=== PATIENT | female | born 1995 | race Caucasian/White ===

== ENCOUNTER 2016-11-11 22:36 | Emergency (ER) | payer SELFPAY ==
[2016-11-11] MEDS ORDERED: DEXAMETHASONE 10 MG/ML VIAL PO STA (23:59)
[2016-11-11] MEDS ORDERED: AZITHROMYCIN 250 MG TABLET PO STA (23:59)
[2016-11-12] MEDS ORDERED: AZITHROMYCIN 250 MG TABLET PO ONE (00:01)
[2016-11-12] MEDS ORDERED: CHERRY SYRUP 10 ML UDC PO ONE (00:01)
[2016-11-12] MEDS ORDERED: DEXAMETHASONE 10 MG/ML VIAL ONE (00:01)
[2016-11-12] MEDS ORDERED: KETOROLAC 60 MG/2 ML VIAL IM STA (00:05)
[2016-11-12] MEDS ORDERED: KETOROLAC 60 MG/2 ML VIAL ONE (00:12)
== END 2016-11-12 00:20 | disposition home or self-care (01) ==
DX: H66.002 Acute suppurative otitis media without spontaneous rupture of ear drum, left ear (principal); R10.9 Unspecified abdominal pain; R30.0 Dysuria
CPT/HCPCS: 81003; 81025; 87086; 87491; 87591; 96372; 99282; 99283; A9270

== ENCOUNTER 2018-12-03 11:47 | Outpatient (CLI) | payer OTHER ==
[2018-12-03 13:16] LABS: THYROID STIMULATING HORMONE 0.73 uIU/mL (0.34-5.60)
[2018-12-03 13:22] LABS: PROLACTIN 7.26 ng/mL
== END 2018-12-03 11:48 | disposition home or self-care (01) ==
LOC: LAB 11:47
PROVIDERS: ATTEND Registered Nurse
DX: N96 Recurrent pregnancy loss (principal)
CPT/HCPCS: 36415; 81599; 84146; 84443; 86038

== ENCOUNTER 2018-12-04 08:00 | Outpatient (CLI) | payer OTHER | END 2018-12-04 23:59 | disposition home or self-care (01) | LOC: LAB.R 08:00 | PROVIDERS: ATTEND Registered Nurse | DX: N96 Recurrent pregnancy loss (principal) | CPT/HCPCS: 87491; 87591 ==

== ENCOUNTER 2018-12-24 15:35 | Outpatient (CLI) | payer OTHER ==
--- NOTE | 2018-12-25 09:16 | Ultrasound Report ---
Reason: RECURRENT Procedure Date: 12/24/2018 Accession Number: [id number] / [id number] Procedure: US - Pelvic w/Transvaginal CPT Code: FULL RESULT: EXAM: PELVIC ULTRASOUND EXAM DATE: 12/24/2018 05:12 PM. CLINICAL HISTORY: Recurrent . COMPARISON: None. TECHNIQUE: Realtime transabdominal pelvic scan performed to identify the uterus and adnexa and as an overview of other pelvic structures, followed by transvaginal scan to provide greater detail of the uterus and adnexa, with static image documentation. FINDINGS: Uterus: 9.9 x 4 x 5.9 cm, volume 77 cc. Anteverted position. Normal in size. Ill-defined 2.5 cm area of increased myometrial echogenicity posterior fundal uterus of uncertain significance possible adenomyomatosis. Masses: No definite Endometrium: 18 mm. Normal for cycle. Cervix: Unremarkable. Right Ovary: 2.7 x 2.9 x 2.4 cm, volume 9.6 cc. Normal echotexture and blood flow. Left Ovary: 2.4 x 1.4 x 2.3 cm, volume 4.1 cc. Normal echotexture and blood flow. Free Fluid: None. Other: None. IMPRESSION: 1. A 2.5 x 1.5 cm area of ill-defined increased echotexture to the posterior fundal myometrium. Consider adenomyomatosis. 2. Otherwise normal pelvic ultrasound. RADIA
== END 2018-12-24 15:36 | disposition home or self-care (01) ==
LOC: DI 15:35
PROVIDERS: ATTEND Registered Nurse
DX: N96 Recurrent pregnancy loss (principal)
CPT/HCPCS: 76830; 76856

== ENCOUNTER 2018-12-31 12:10 | Outpatient (CLI) | payer OTHER | END 2018-12-31 12:11 | disposition home or self-care (01) | LOC: LAB 12:10 | PROVIDERS: ATTEND Registered Nurse | DX: N96 Recurrent pregnancy loss (principal) | CPT/HCPCS: 36415; 81599; 86147 ==

== ENCOUNTER 2019-02-26 08:48 | Outpatient (CLI) | payer OTHER ==
[2019-02-26] MEDS ORDERED: GADOBUTROL 7.5 MMOL/7.5 ML VIAL ONE (10:03)
[2019-02-26] MEDS ORDERED: GADOBUTROL 7.5 MMOL/7.5 ML VIAL IVP ONE (10:08)
--- NOTE | 2019-02-26 16:36 | MRI Report ---
Reason: ADENOMYOSIS Procedure Date: 02/26/2019 Accession Number: [id number] / [id number] Procedure: MRI - Pelvis W/WO CPT Code: FULL RESULT: EXAM: MR PELVIS WITH AND WITHOUT CONTRAST (MR FEMALE PELVIS) EXAM DATE: 02/26/2019 10:26 AM. CLINICAL HISTORY: ADENOMYOSIS. Debilitating menstrual cycles with multiple miscarriages. COMPARISON: PELVIC W/TRANSVAGINAL 12/24/2018 4:24 PM. TECHNIQUE: Multiplanar breath-hold T1, T2 and DWI sequences obtained through the pelvis on an MR scanner. Images obtained before and after administration of 7.5 mL Gadavist intravenous contrast. FINDINGS: Reproductive Organs: Uterus: The uterus is anteverted and measures 9.3 x 4.5 x 3.2 cm with volume 72 cc. The endometrial stripe measures 15 mm with homogeneous appearance. Normal 4 mm junctional zone thickness. There are no uterine masses. Right Ovary: The right ovary measures 3.2 x 1.5 x 2.5 cm with volume 6.3 cc. Right ovary contains numerous small follicles. Left Ovary: The left ovary measures 3.4 x 3.0 x 2.1 cm with volume 11 cc. Left ovary contains a 1.6 cm collapsing corpus luteal cyst. Bowel: The visualized portions of the small bowel, colon, and rectum appear normal. Normal retrocecal appendix extending anterior to right psoas muscle. Bladder: The urinary bladder appears normal. Other: Small amount of free fluid in cul-de-sac and along right adnexa is likely physiologic. IMPRESSION: 1. 15 mm endometrial stripe is near upper limit of normal, previously mildly thickened. 2. No MR evidence for adenomyosis. 3. Although right ovary was not enlarged, there are numerous small follicles potentially representing polycystic ovarian morphology. Recommend clinical correlation. RADIA
== END 2019-02-26 08:49 | disposition home or self-care (01) ==
LOC: DI 08:48
PROVIDERS: ATTEND Registered Nurse
DX: N80.0 Endometriosis of uterus (principal)
CPT/HCPCS: 72197; A9585

== ENCOUNTER 2019-03-05 13:22 | Outpatient (CLI) | payer OTHER ==
[2019-03-05 14:15] LABS: CHOL/HDL RATIO 2.4 (<4.4); CHOLESTEROL 129 mg/dL; HDL CHOLESTEROL 53 mg/dL
[2019-03-05 14:33] LABS: LDL CHOLESTEROL,DIRECT 78 mg/dL; LDLD/HDL RATIO 1.5 (<4.4)
[2019-03-05 14:45] LABS: HB2 TOTAL 13.1 g/dL; HEMOGLOBIN A1C 0.42 g/dL; HEMOGLOBIN A1C % 5.1 % (4.6-6.2)
[2019-03-05 15:22] LABS: THYROID STIMULATING HORMONE 0.39 uIU/mL (0.34-5.60)
[2019-03-05 15:49] LABS: FOLLICLE STIMULATING HORMONE 6.24 mIU/mL
[2019-03-05 15:50] LABS: LUTEINIZING HORMONE 5.54 mIU/mL
[2019-03-06 06:57] LABS: ESTRADIOL 48 pg/mL
[2019-03-09 15:50] LABS: DHEA SULFATE 247 mcg/dL (18-391)
== END 2019-03-05 13:23 | disposition home or self-care (01) ==
LOC: LAB 13:22
PROVIDERS: ATTEND Registered Nurse
DX: E28.2 Polycystic ovarian syndrome (principal)
CPT/HCPCS: 36415; 80061; 81599; 82627; 82670; 82951; 83001; 83002; 83036; 83721; 84402; 84403; 84443

== ENCOUNTER 2019-04-05 16:25 | Outpatient (CLI) | payer OTHER | END 2019-04-05 16:26 | disposition home or self-care (01) | LOC: LAB 16:25 | PROVIDERS: ATTEND Obstetrics & Gynecology | DX: Z32.01 Encounter for pregnancy test, result positive (principal) | CPT/HCPCS: 36415; 84702 ==

== ENCOUNTER 2019-04-07 18:14 | Outpatient (CLI) | payer OTHER | END 2019-04-07 18:15 | disposition home or self-care (01) | LOC: LAB 18:14 | PROVIDERS: ATTEND Obstetrics & Gynecology | DX: Z32.01 Encounter for pregnancy test, result positive (principal) | CPT/HCPCS: 36415; 84702 ==

== ENCOUNTER 2019-04-26 08:28 | Outpatient (CLI) | payer OTHER ==
--- NOTE | 2019-04-27 09:58 | Ultrasound Report ---
Reason: TEST POSITIVE Procedure Date: 04/26/2019 Accession Number: [id number] / [id number] Procedure: US - OB First Trimester CPT Code: FULL RESULT: EXAM: FIRST TRIMESTER OBSTETRIC ULTRASOUND (Less than 11 weeks) EXAM DATE: 04/26/2019 09:26 AM. CLINICAL HISTORY: test positive. LMP: 02/28/2019. COMPARISONS: None. TECHNIQUE: Transabdominal and transvaginal ultrasound examination with static image documentation. CLINICAL DATES: EGA 8 weeks 1 day with DAVEY 12/05/2019 based on LMP. ASSESSMENT: Gestational Sac: Single intrauterine. Mean gestational sac diameter: 21 mm = 7 weeks 0 days. Embryo: CRL (crown-rump length) 12 mm = 7 weeks 2 days. Cardiac activity: 163 beats per minute. Yolk sac: 3 mm. Amniotic fluid: Not accurately assessed at this gestational age. Early placenta: Not visible at this gestational age. Other: A small perigestational fluid collection is detected 3.6 x 0.7 x 3.9 cm. MATERNAL STRUCTURES: Uterus: Anteverted and retroflexed. Cervix: Closed. Right Ovary/Adnexa: The ovary measures 3.0 x 2.4 x 2.8 cm, volume 10.5 cc. Corpus luteum noted. Left Ovary/Adnexa: The ovary measures 2.1 x 1.5 x 2.3 cm, volume 3.8 cc. Unremarkable. Free Fluid: None. Other: None. IMPRESSION: 1. Single viable intrauterine at EGA 7 weeks 2 days with DAVEY 12/11/2019. Based on crown-rump length, which is discordant with LMP. 2. Assigned dating is DAVEY 7 weeks 2 days based on current ultrasound. RADIA
== END 2019-04-26 08:29 | disposition home or self-care (01) ==
LOC: DI 08:28
PROVIDERS: ATTEND Obstetrics & Gynecology
DX: Z32.01 Encounter for pregnancy test, result positive (principal)
CPT/HCPCS: 76801; 76817

== ENCOUNTER 2019-05-03 08:00 | Outpatient (CLI) | payer OTHER ==
[2019-05-03 15:27] LABS: MUDS CUTOFF CONCENTRATIONS CUTOFF CONC BELOW:
[2019-05-03 15:32] LABS: BILIRUBIN,URINE NEGATIVE (NEGATIVE); GLUCOSE, URINE (UA) NEGATIVE (NEGATIVE); KETONES,URINE (UA) NEGATIVE (NEGATIVE); LEUKOCYTE ESTERASE, URINE NEGATIVE (NEGATIVE); NITRITE,URINE NEGATIVE (NEGATIVE); OCCULT BLOOD,URINE NEGATIVE (NEGATIVE); PH,URINE 6.5 PH (5.0-7.5); PROTEIN,URINE NEGATIVE (NEGATIVE); UROBILINOGEN,URINE 0.2 (NORMAL) E.U./dL (NORMAL)
[2019-05-03 15:39] LABS: BACTERIA,URINE Few /HPF (None Seen); CLARITY,URINE CLEAR (CLEAR); RBC,URINE None Seen /HPF (0-5); SQUAMOUS EPITHELIAL CELL,UR MOD Squamous (<= Few)
[2019-05-03 15:42] LABS: AMPHETAMINE SCREEN,URINE NEGATIVE (NEGATIVE); BENZODIAZEPINES SCREEN, URINE NEGATIVE (NEGATIVE); COCAINE SCREEN URINE NEGATIVE (NEGATIVE); METHADONE SCREEN, URINE NEGATIVE (NEGATIVE); METHAMPHETAMINES SCREEN, URINE NEGATIVE (NEGATIVE); OPIATE SCREEN, URINE NEGATIVE (NEGATIVE); OXYCODONE SCREEN, URINE NEGATIVE (NEGATIVE); PROPOXYPHENE SCREEN, URINE NEGATIVE (NEGATIVE); TRICYCLIC ANTIDEPRESSANT,URINE NEGATIVE (NEGATIVE)
== END 2019-05-03 23:59 | disposition home or self-care (01) ==
LOC: LAB.R 08:00
PROVIDERS: ATTEND Nurse Practitioner Obstetrics & Gynecology
DX: Z36.89 Encounter for other specified antenatal screening (principal)
CPT/HCPCS: 80306; 81001; 81599; 87086

== ENCOUNTER 2019-05-03 14:52 | Outpatient (CLI) | payer OTHER ==
[2019-05-03 15:21] LABS: BASOPHILS % (AUTO) 0.4 %; EOSINOPHILS # (AUTO) 0.1 10^3/uL (0.0-0.7); EOSINOPHILS % (AUTO) 0.6 %; HGB - HEMOGLOBIN 12.8 g/dL (12.0-16.0); LYMPHOCYTES # (AUTO) 1.9 10^3/uL (1.5-3.5); LYMPHOCYTES % (AUTO) 17.9 %; MEAN CORPUSCULAR HEMOGLOBIN 29.5 pg (27.0-31.0); MEAN CORPUSCULAR VOLUME 89.4 fL (81.0-99.0); MEAN PLATELET VOLUME 9.3 fL (7.9-10.8); MONOCYTES # (AUTO) 0.8 10^3/uL (0.0-1.0); MONOCYTES % (AUTO) 7.8 %; NEUTROPHILS # (AUTO) 7.7 10^3/uL (1.5-6.6); PLT - PLATELET COUNT 227 10^3/uL (130-450); RED BLOOD COUNT 4.34 10^6/uL (4.20-5.40); RED CELL DISTRIBUTION WIDTH 12.3 % (12.0-15.0); WHITE BLOOD COUNT 10.6 x10^3/uL (4.8-10.8)
[2019-05-04 15:16] LABS: HIV AG/AB 4TH GEN NON-REACTIVE (NON-REACTIVE)
[2019-05-04 15:27] LABS: HEPATITIS C ANTIBODY NON-REACTIVE (NON-REACTIVE)
[2019-05-04 15:28] LABS: HEPATITIS B SURFACE ANTIGEN NON-REACTIVE (NON-REACTIVE)
== END 2019-05-03 14:53 | disposition home or self-care (01) ==
LOC: LAB 14:52
PROVIDERS: ATTEND Nurse Practitioner Obstetrics & Gynecology
DX: Z36.89 Encounter for other specified antenatal screening (principal)
CPT/HCPCS: 36415; 80306; 81001; 81599; 85025; 86592; 86762; 86803; 86850; 86900; 86901; 87340; 87389

== ENCOUNTER 2019-06-28 10:49 | Outpatient (CLI) | payer OTHER ==
[2019-06-28 11:27] LABS: HGB - HEMOGLOBIN 11.9 g/dL (12.0-16.0); MEAN CORPUSCULAR HEMOGLOBIN 29.9 pg (27.0-31.0); MEAN CORPUSCULAR HGB CONC 33.1 g/dL (32.0-36.0); MEAN CORPUSCULAR VOLUME 90.2 fL (81.0-99.0); MEAN PLATELET VOLUME 9.3 fL (7.9-10.8); RED BLOOD COUNT 3.98 10^6/uL (4.20-5.40); RED CELL DISTRIBUTION WIDTH 12.9 % (12.0-15.0); WHITE BLOOD COUNT 8.8 x10^3/uL (4.8-10.8)
[2019-06-28 12:16] LABS: % IRON SATURATION 25 % (20-50); IRON 92 ug/dL (28-170); TOTAL IRON BINDING CAPACITY 361 ug/dL (250-450); TRANSFERRIN 258 mg/dL (192-382)
[2019-06-28 12:29] LABS: FERRITIN 28.7 ng/mL (11.0-306.8)
== END 2019-06-28 10:50 | disposition home or self-care (01) ==
LOC: LAB 10:49
PROVIDERS: ATTEND Obstetrics & Gynecology
DX: Z34.90 Encounter for supervision of normal pregnancy, unspecified, unspecified trimester (principal); R53.83 Other fatigue
CPT/HCPCS: 36415; 82728; 83540; 84443; 84466; 85027

== ENCOUNTER 2019-07-12 09:20 | Outpatient (CLI) | payer OTHER ==
--- NOTE | 2019-07-12 14:33 | Ultrasound Report ---
Reason: SCREENING Procedure Date: 07/12/2019 Accession Number: [id number] / [id number] Procedure: US - OB Detailed Eval CPT Code: FULL RESULT: EXAM: COMPLETE OBSTETRICAL ULTRASOUND EXAM DATE: 07/12/2019 11:05 AM. CLINICAL HISTORY: anatomic survey. COMPARISON: 04/26/2019. TECHNIQUE: Real-time sonographic evaluation of the fetus performed by the tongue binder. Multiple solar sales representative static images were saved for review. Transabdominal imaging only. DATING: Established EGA 19 weeks 1 day with DAVEY 12/05/2019 based on LMP. EGA 18 weeks 2 days with DAVEY 12/11/2019 based on prior ultrasound. EGA 19 weeks 0 days with DAVEY 12/06/2019 based on the current ultrasound. GENERAL EVALUATION Gaines . Cardiac activity: 133 bpm. movement: Visualized. Presentation: Variable. Placenta: Posterior fundal position. No evidence for previa. Umbilical cord: 3 vessel cord. Central placental cord origin. Amniotic fluid: Subjectively normal. MVP cm. BIOMETRY Bi-Parietal Diameter (BPD): 4.38 cm, 19 weeks 2 days. Head Circumference (HC): 15.61 cm, 18 weeks 4 days. Abdominal Circumference (AC): 14.51 cm, 19 weeks 6 days. Femur Length (FL): 2.76 cm, 18 weeks 3 days. Estimated Weight: 275 g, 43.9 percentile. ANATOMY The intracranial structures, profile, face/nose/lips, spine, 4 chamber heart and outflow tracts, stomach, abdominal wall and cord insertion, diaphragm, kidneys, bladder, and extremities were visualized and demonstrate no abnormality. MATERNAL STRUCTURES Uterus: Unremarkable. Cervix: Long and closed. Transabdominal length 4.8 cm. Right ovary/adnexa: Unremarkable. Left ovary/adnexa: Unremarkable. Free fluid: None. IMPRESSION: 1. Gaines live intrauterine with gestational age 19 weeks 0 days based on current ultrasound. 2. Estimated weight is within expected limits for assigned dating. 3. Normal anatomic survey. No anatomic abnormalities are detected at this time. RADIA
== END 2019-07-12 09:21 | disposition home or self-care (01) ==
LOC: DI 09:20
PROVIDERS: ATTEND Obstetrics & Gynecology
DX: Z36.89 Encounter for other specified antenatal screening (principal)
CPT/HCPCS: 76811

== ENCOUNTER 2019-09-13 15:00 | Outpatient (CLI) | payer OTHER ==
[2019-09-13 16:25] LABS: HGB - HEMOGLOBIN 11.2 g/dL (12.0-16.0); MEAN CORPUSCULAR HEMOGLOBIN 31.6 pg (27.0-31.0); MEAN CORPUSCULAR HGB CONC 34.1 g/dL (32.0-36.0); MEAN CORPUSCULAR VOLUME 92.7 fL (81.0-99.0); MEAN PLATELET VOLUME 9.5 fL (7.9-10.8); RED BLOOD COUNT 3.54 10^6/uL (4.20-5.40); RED CELL DISTRIBUTION WIDTH 12.2 % (12.0-15.0); WHITE BLOOD COUNT 8.7 x10^3/uL (4.8-10.8)
== END 2019-09-13 15:01 | disposition home or self-care (01) ==
LOC: LAB 15:00
PROVIDERS: ATTEND Nurse Practitioner Obstetrics & Gynecology
DX: Z36.89 Encounter for other specified antenatal screening (principal)
CPT/HCPCS: 36415; 82950; 85027; 86850

== ENCOUNTER 2019-10-19 07:00 | Outpatient (CLI) | payer OTHER | END 2019-10-19 23:59 | disposition home or self-care (01) | LOC: LAB.R 07:00 | PROVIDERS: ATTEND Nurse Practitioner Obstetrics & Gynecology | DX: O60.03 Preterm labor without delivery, third trimester (principal); Z3A.00 Weeks of gestation of pregnancy not specified; M54.89 Other dorsalgia | CPT/HCPCS: 81599; 82731 ==

== ENCOUNTER 2019-11-12 07:00 | Outpatient (CLI) | payer OTHER ==
[2019-11-12 21:34] LABS: TRICHOMONAS VAGINALIS DNA NEGATIVE (NEGATIVE)
== END 2019-11-12 23:59 | disposition home or self-care (01) ==
LOC: LAB.R 07:00
PROVIDERS: ATTEND Nurse Practitioner Obstetrics & Gynecology
DX: Z36.85 Encounter for antenatal screening for Streptococcus B (principal); Z36.89 Encounter for other specified antenatal screening
CPT/HCPCS: 87491; 87591; 87661; 87797

== ENCOUNTER 2019-11-14 07:32 | Outpatient (CLI) | payer OTHER ==
[2019-11-14 07:54] VITALS: BP 126/71
[2019-11-14] MEDS ORDERED: LACTATED RINGERS 1,000 ML IV ONE (08:13)
[2019-11-14 08:41] LABS: HGB - HEMOGLOBIN 11.2 g/dL (12.0-16.0); MEAN CORPUSCULAR HEMOGLOBIN 29.1 pg (27.0-31.0); MEAN CORPUSCULAR HGB CONC 32.2 g/dL (32.0-36.0); MEAN CORPUSCULAR VOLUME 90.4 fL (81.0-99.0); MEAN PLATELET VOLUME 10.7 fL (7.9-10.8); RED BLOOD COUNT 3.85 10^6/uL (4.20-5.40); RED CELL DISTRIBUTION WIDTH 12.1 % (12.0-15.0); WHITE BLOOD COUNT 8.4 x10^3/uL (4.8-10.8)
[2019-11-14 08:54] LABS: ALBUMIN 3.4 g/dL (3.2-5.5); BILIRUBIN,TOTAL 0.5 mg/dL (0.2-1.0); CALCIUM 8.6 mg/dL (8.5-10.3); CREATININE 0.6 mg/dL (0.4-1.0); TOTAL PROTEIN 6.8 g/dL (6.7-8.2)
[2019-11-14 09:00] LABS: BILIRUBIN,URINE NEGATIVE (NEGATIVE); GLUCOSE, URINE (UA) NEGATIVE (NEGATIVE); KETONES,URINE (UA) NEGATIVE (NEGATIVE); LEUKOCYTE ESTERASE, URINE MODERATE (NEGATIVE); NITRITE,URINE NEGATIVE (NEGATIVE); OCCULT BLOOD,URINE NEGATIVE (NEGATIVE); PROTEIN,URINE NEGATIVE (NEGATIVE); UROBILINOGEN,URINE 0.2 (NORMAL) E.U./dL (NORMAL)
[2019-11-14] MEDS ORDERED: ONDANSETRON 4 MG/2 ML VIAL IVP PRN (09:03)
[2019-11-14 09:11] LABS: CLARITY,URINE HAZY (CLEAR)
[2019-11-14 09:28] LABS: BACTERIA,URINE Moderate /HPF (None Seen); SQUAMOUS EPITHELIAL CELL,UR MOD Squamous (<= Few)
[2019-11-14] MEDS ORDERED: BENZOCAINE SPRAY MM SCH (10:00)
[2019-11-14] MEDS ORDERED: NITROFURANTOIN MACRO 100 MG CAPSULE PO SCH (10:00)
--- NOTE | 2019-11-14 10:34 | PROVIDER PROGRESS NOTE ---
- HPI Chief Complaint: symptoms Current : Current EDU 12/05/19 Gestation 36 Weeks and 0 Days 4 Para 0 Vital Signs Temperature 98.2 F 11/14/19 07:49 Heart Rate 61 11/14/19 07:49 Respiratory Rate 16 11/14/19 07:49 Blood Pressure 126/71 11/14/19 07:49 O2 Saturation 100 11/14/19 07:49 Temperature 98.2 F 11/14/19 07:49 Heart Rate 61 11/14/19 07:49 Respiratory Rate 16 11/14/19 07:49 Blood Pressure 126/71 11/14/19 07:49 O2 Saturation 100 11/14/19 07:49 24yo at 36 0/7 weeks by 7 week US not c/w LMP who presents with nausea, vomiting, suprapubic pain, frequency and urgency since last night. Denies fever, no sick contacts. Pt notes h/o frequent UTI's prior to . No bleeding or fluid leak, normal activity. Contractions irregular, mild. complicated by hyperemesis in first trimester and GERD. - Exam Mild distress, appears uncomfortable Abd soft, non-tender, mild suprapubic tenderness. Gravid, S=D - Procedures OB Procedure Performed: Other Diagnosis/Indication for NST: Other ( contractions, vomiting) NST Procedure: Category 1 tracing, irregular contraction, palpate very mild BPP: LEONIDES 11.1, vertical pocket 4.6cm, 8/8 Vertex Posterior placenta
--- NOTE | 2019-11-14 10:41 | PROVIDER PROGRESS NOTE ---
Subjective - Prog Note Date Prog Note Date: 11/14/19 Prog Note Time: 10:38 - Subjective Pt reports feeling: Improved (Feeling much better following hydration and zofran. Topical throat spray (sore secondary to vomiting) with resolution of symptoms Labs remarkable for leuk esterase and bacteria. +squames however, with other positives and symptomatology will initiate treatment for UTI and send culture. Repeat blood sugar 79 (initially 120) Plan DC home. F/U as scheduled in 48 hours. Continue amoxicillin. Discussed change of DAVEY.) Objective - Vital Signs/Intake & Output Vital Signs: Vital Signs x48h Temp Pulse Resp BP Pulse Ox 11/14/19 07:49 98.2 F 61 16 126/71 100 - Lab Results Fish Bones: 11/14/19 08:35 11/14/19 08:35 Other Labs: Lab Results x24hrs 11/14/19 11/14/19 11/14/19 Range/Units 08:45 08:35 08:35 WBC 8.4 (4.8-10.8) x10^3/uL RBC 3.85 L (4.20-5.40) 10^6/uL Hgb 11.2 L (12.0-16.0) g/dL Hct 34.8 L (37.0-47.0) % MCV 90.4 (81.0-99.0) fL MCH 29.1 (27.0-31.0) pg MCHC 32.2 (32.0-36.0) g/dL RDW 12.1 (12.0-15.0) % Plt Count 197 (130-450) 10^3/uL MPV 10.7 (7.9-10.8) fL Sodium 135 (135-145) mmol/L Potassium 3.6 (3.5-5.0) mmol/L Chloride 101 (101-111) mmol/L Carbon Dioxide 20 L (21-32) mmol/L Anion Gap 14.0 H (6-13) BUN 7 (6-20) mg/dL Creatinine 0.6 (0.4-1.0) mg/dL Estimated GFR (MDRD) 122 (>89) Glucose 120 H (70-100) mg/dL Calcium 8.6 (8.5-10.3) mg/dL Total Bilirubin 0.5 (0.2-1.0) mg/dL AST 28 (10-42) IU/L ALT 14 (10-60) IU/L Alkaline Phosphatase 98 (42-121) IU/L Total Protein 6.8 (6.7-8.2) g/dL Albumin 3.4 (3.2-5.5) g/dL Globulin 3.4 (2.1-4.2) g/dL Albumin/Globulin Ratio 1.0 (1.0-2.2) Urine Color YELLOW Urine Clarity HAZY (CLEAR) Urine pH 7.0 (5.0-7.5) PH Ur Specific [place] 1.010 (1.002-1.030) Urine Protein NEGATIVE (NEGATIVE) mg/dL Urine Glucose (UA) NEGATIVE (NEGATIVE) mg/dL Urine Ketones NEGATIVE (NEGATIVE) mg/dL Urine Occult Blood NEGATIVE (NEGATIVE) Urine Nitrite NEGATIVE (NEGATIVE) Urine Bilirubin NEGATIVE (NEGATIVE) Urine Urobilinogen 0.2 (NORMAL) (NORMAL) E.U./dL Ur Leukocyte Esterase MODERATE H (NEGATIVE) Urine RBC 6-10 H (0-5) /HPF Urine WBC 6-10 H (0-5) /HPF Ur Squamous Epith Cells MOD Squamous H (<= Few) Urine Bacteria Moderate H (None Seen) /HPF Urine Culture Comments INDICATED
[2019-11-14] MEDS: AMOXICILLIN 250 MG CAPSULE PO SCH ×2 (10:48→11:05)
--- NOTE | 2019-11-14 10:56 | Discharge Plan ---
Discharge Plan Problem Reviewed?: Yes Disposition: Home, Self Care Condition: Good Prescriptions: Amoxicillin 250 mg PO Q6HR 5 Days #20 capsule Diet: Regular No Smoking: If you smoke, Please STOP! Call for help.
[2019-11-14] MEDS ORDERED: BENZOCAINE/TETRACAINE/BUTAMBEN 20 GM MM SCH (11:00)
== END 2019-11-14 11:00 | disposition home or self-care (01) ==
LOC: WFO 07:32 → FBP 07:34 → WFO 11:00
PROVIDERS: ATTEND Obstetrics & Gynecology
DX: O21.2 Late vomiting of pregnancy (principal); R35.0 Frequency of micturition; R39.15 Urgency of urination; R82.71 Bacteriuria; R07.0 Pain in throat; O99.613 Diseases of the digestive system complicating pregnancy, third trimester; K21.9 Gastro-esophageal reflux disease without esophagitis; Z3A.36 36 weeks gestation of pregnancy; Z87.440 Personal history of urinary (tract) infections
CPT/HCPCS: 80053; 81001; 85027; 87086; 96374; 99214; A9270; J7120

== ENCOUNTER 2019-11-26 09:11 | Outpatient (CLI) | payer OTHER ==
[2019-11-26 09:25] VITALS: BP 122/64
--- NOTE | 2019-11-26 16:34 | PROCEDURE REPORT ---
- HPI Diagnosis/Indication for NST: Decreased movement Current EDU 12/11/19 Gestation 37 Weeks and 6 Days 4 Para 0 Vital Signs Temperature 36.9 C 11/26/19 09:24 Heart Rate 84 11/26/19 09:24 Respiratory Rate 14 11/26/19 09:24 Blood Pressure 122/64 11/26/19 09:24 O2 Saturation 97 11/26/19 09:24 Temperature 36.9 C 11/26/19 09:24 Heart Rate 84 11/26/19 09:24 Respiratory Rate 14 11/26/19 09:24 Blood Pressure 122/64 11/26/19 09:24 O2 Saturation 97 11/26/19 09:24 - NST Procedure NST Procedure Start Date 11/26/19 Start Time 09:19 Stop Time 09:42 Vibroacoustic Stimulation Used No Patient States Movement Yes - Results and Plan Plan: Jayna presents to [facility] following her routine visit as directed secondary to decreased movement for the past 4-5 hours. She denies vaginal bleeding or leakage of fluid and denies contractions. NST performed 11/26/2019 NST read 11/26/2019 NST reactive. FHR baseline 130s, moderate variability, + accels, no decels Pt released home with precautions and instructed to complete daily kick counts as directed. Pt verbalized understanding and agrees to above plan. She denies further questions or concerns at this time. FINAL DIAGNOSIS: 24yo @ 37.6wks gestation Decreased movement
== END 2019-11-26 09:55 | disposition home or self-care (01) ==
LOC: WFO 09:11 → FBP 09:13 → WFO 09:55
PROVIDERS: ATTEND Nurse Practitioner Obstetrics & Gynecology
DX: O36.8130 Decreased fetal movements, third trimester, not applicable or unspecified (principal); Z3A.37 37 weeks gestation of pregnancy
CPT/HCPCS: 59025

== ENCOUNTER 2019-12-06 21:57 | Outpatient (CLI) | payer MEDICAID ==
--- NOTE | 2019-12-08 13:53 | Ultrasound Report ---
Reason: UTERINE SIZE-DATE DISCREPANCY Procedure Date: 12/06/2019 Accession Number: [id number] / [id number] Procedure: US - OB F/U or Repeat CPT Code: Final Report FULL RESULT: EXAM: FOLLOW-UP OBSTETRICAL ULTRASOUND EXAM DATE: 12/06/2019 10:50 PM. CLINICAL HISTORY: UTERINE SIZE-DATE DISCREPANCY. COMPARISON: OB DETAILED EVAL 07/12/2019 9:39 AM OB FIRST TRIMESTER 04/26/2019 8:37 AM. TECHNIQUE: Real-time sonographic evaluation of the fetus performed by the equipment cleaner and tester. Multiple registration representative static images were saved for review. DATING: Established EGA 39 weeks 2 days with DAVEY 12/11/2019 based on first ultrasound of 04/26/2019.. EGA 40 weeks 1 day with DAVEY 12/05/2019 based on LMP.. EGA weeks/days with DAVEY based on the current ultrasound. GENERAL EVALUATION Gaines . Cardiac activity: 136 bpm. movement: Present. Presentation: Cephalic. Placenta: Posterior position. Amniotic fluid: Normal. LEONIDES 18.6 cm. MVP 5 cm. BIOMETRY Bi-Parietal Diameter (BPD): 9.4 cm, 38 weeks 1 day Head Circumference (HC): 34.8 cm, 30 weeks 3 days Abdominal Circumference (AC): 33.3 cm, 37 weeks 1 day Femur Length (FL): 7.5 cm, 38 weeks 1 day Estimated Weight: 3332 g, 25th percentile based on LMP. ANATOMY Not assessed today. MATERNAL STRUCTURES Not assessed today. IMPRESSION: 1. Gaines intrauterine with gestational age 39 weeks 2 days based on first ultrasound of 04/26/2019.. 2. Estimated weight is at the 25th percentile. 3. Normal LEONIDES. RADIA
== END 2019-12-06 21:58 | disposition home or self-care (01) ==
LOC: DI 21:57
PROVIDERS: ATTEND Nurse Practitioner Obstetrics & Gynecology
DX: O26.843 Uterine size-date discrepancy, third trimester (principal); Z3A.39 39 weeks gestation of pregnancy
CPT/HCPCS: 76816

== ENCOUNTER 2019-12-09 08:00 | Outpatient (CLI) | payer MEDICAID ==
[2019-12-09 20:34] LABS: CANDIDA GROUP DNA NEGATIVE (NEGATIVE); CANDIDA KRUSEI DNA NEGATIVE (NEGATIVE); TRICHOMONAS VAGINALIS DNA NEGATIVE (NEGATIVE)
== END 2019-12-09 23:59 | disposition home or self-care (01) ==
LOC: LAB.R 08:00
PROVIDERS: ATTEND Obstetrics & Gynecology
DX: R30.0 Dysuria (principal)
CPT/HCPCS: 87086; 87661; 87801

== ENCOUNTER 2019-12-10 13:42 | Outpatient (CLI) | payer MEDICAID ==
[2019-12-10 14:00] VITALS: BP 120/71
--- NOTE | 2019-12-10 16:54 | PROCEDURE REPORT ---
- HPI Diagnosis/Indication for NST: Decreased movement Current EDU 12/11/19 Gestation 39 Weeks and 6 Days 4 Para 0 Vital Signs Temperature 37.0 C 12/10/19 13:54 Heart Rate 72 12/10/19 13:54 Respiratory Rate 18 12/10/19 13:54 Blood Pressure 120/71 12/10/19 13:54 Temperature 37.0 C 12/10/19 13:54 Heart Rate 72 12/10/19 13:54 Respiratory Rate 18 12/10/19 13:54 Blood Pressure 120/71 12/10/19 13:54 O2 Saturation - NST Procedure NST Procedure Start Date 12/10/19 Start Time 13:55 Stop Time 14:15 Vibroacoustic Stimulation Used No Patient States Movement No: decreased - Results and Plan Plan: HPI: Jayna presents today following her routine visit for NST indicated for decreased movement. She denies VB or Lof and denies contractions. She reports she is feeling the baby move however the movements have seemed significantly less over the past 24 hours. In addition she reports new onset cough and body aches. She denies exposure to anyone with illness recently. She has remained afebrile. NST performed 12/10/2019 NST read 12/10/2019 NST reactive. Baseline 120s moderate variability, + accels, no decels Rapid flu collected - negative Pt released home with precautions and given instructions for daily kick counting. Pt verbalized understanding and denies further questions or concerns at this time. FINAL DIAGNOSIS: Decreased movement >37wks gestation Cough
== END 2019-12-10 14:25 | disposition home or self-care (01) ==
LOC: WFO 13:42 → FBP 13:46 → WFO 14:25
PROVIDERS: ATTEND Nurse Practitioner Obstetrics & Gynecology
DX: O36.8130 Decreased fetal movements, third trimester, not applicable or unspecified (principal); Z3A.39 39 weeks gestation of pregnancy
CPT/HCPCS: 59025; 87275; 87276

== ENCOUNTER 2021-02-26 18:56 | Emergency (ER) | payer MEDICAID, OTHER ==
[2021-02-26] MEDS ORDERED: KETOROLAC 60 MG/2 ML VIAL IM STA (19:22)
--- NOTE | 2021-02-26 20:13 | XRAY Report ---
PROCEDURE: Knee 4 View LT INDICATIONS: L knee twist, pain x3 days TECHNIQUE: 4 views of the left knee(s) were acquired. COMPARISON: None. FINDINGS: Bones: No fractures or dislocations. No suspicious bony lesions. Soft tissues: Very small joint effusion. No suspicious soft tissue calcifications. IMPRESSION: Very small joint effusion, otherwise normal left knee. Reviewed by: Madonna Bills MD on 02/26/2021 8:11 PM PDT Approved by: Madonna Bills MD on 02/26/2021 8:11 PM PDT Station ID: [id number]
[2021-02-26] MEDS ORDERED: HYDROcod/ACETAM 5/325 MG TABLET PO STA (20:41)
--- NOTE | 2021-02-26 20:44 | ED Physician Documentation ---
PD HPI LOWER EXT INJURY - Stated complaint Stated Complaint: L KNEE INJURY - Chief complaint Chief Complaint: Ext Problem - History obtained from History obtained from: Patient - History of Present Illness PD HPI LOW EXT INJURY LOCATION: Left, Knee Type of injury: Fall Timing - onset: How many days ago (2) Timing - duration: Days (2) Timing - details: Abrupt onset Pain level max: 7 Pain level now: 7 Improved by: Rest, Ice Worsened by: No: Moving, Palpating Associated symptoms: No: Weakness, Numbness, Tingling, Swelling Contributing factors: No: Anticoagulated, Prior ortho surgery Recently seen: Not recently seen - Additional information Additional information: 25-year-old female injured her left knee several days ago while playing basketball in [place]. She states that she tried to cut when her knee gave out on her. Worse with walking, better with rest. Review of Systems Constitutional: denies: Fever, Chills GI: denies: Vomiting, Diarrhea : denies: Now EGA Skin: denies: Rash PD PAST MEDICAL HISTORY - Past Medical History Past Medical History: Yes Endocrine/Autoimmune: None GI: Ulcers HEENT: Other - Past Surgical History Past Surgical History: Yes Ortho: ACL reconstruction, Other - Present Medications Home Medications: Ambulatory Orders Medication Instructions Recorded Confirmed HYDROcod/ACETAM 5/325 [[place] 5/325] 1 - 2 ea PO Q6H PRN #14 tablet 02/26/21 Norethindrone-E.estradiol-Iron 1 tab PO DAILY 02/26/21 02/26/21 [Familia 24 Fe 1 mg-20 Mcg Tablet] - Allergies Allergies/Adverse Reactions: Allergies Allergy/AdvReac Type Severity Reaction Status Date / Time oxycodone Allergy Unknown Verified 11/11/16 22:43 - Social History Does the pt smoke?: No Smoking Status: Never smoker Does the pt drink ETOH?: No Does the pt have substance abuse?: Yes - Immunizations Immunizations are current?: Yes - POLST Patient has POLST: No PD ED PE NORMAL - Vitals Vital signs reviewed: Yes - General General: Alert and oriented X 3, No acute distress - HEENT HEENT: Moist mucous membranes - Neck Neck: Supple, no meningeal sign - Cardiac Cardiac: RRR - Respiratory Respiratory: No respiratory distress, Clear bilaterally - Derm Derm: Warm and dry - Extremities Extremities: Other (Left knee - Laxity to the MCL and LCL. PCL appears intact, mild laxity of the ACL as well. Mild joint effusion. Unable to fully test the knee secondary to pain and swelling. Neurovascular intact) - Neuro Neuro: Alert and oriented X 3 Results - Vitals Vitals: Vital Signs - 24 hr 02/26/21 02/26/21 19:07 21:00 Temperature 36.5 C Heart Rate 85 79 Respiratory 18 18 Rate Blood Pressure 144/62 H 127/70 O2 Saturation 100 98 Oxygen O2 Source Room air - Rads (name of study) Left knee x-ray Radiology: Prelim report reviewed, EMP read contemporaneously, See rad report (No acute abnormality. Small joint effusion) PD MEDICAL DECISION MAKING - ED course Complexity details: reviewed results, re-evaluated patient, considered differential, d/w patient ED course: 25-year-old female with what appears to be a left knee sprain. Could have worse ligamentous injury as well as meniscus injury, but this will need to be reevaluated when her pain improves. Placed in an articulating knee brace, limited range of motion to 10 to 30 degrees. Given crutches. Will weight-bear as tolerated. We will prescribe pain medication for home as well. She will fo llow up with orthopedics. Patient counseled regarding signs and symptoms for which I believe and urgent re-evaluation would be necessary. Patient with good understanding of and agreement to plan and is comfortable going home at this time This document was made in part using voice recognition software. While efforts are made to proofread this document, sound alike and grammatical errors may occur. Departure - Departure Disposition: 01 Home, Self Care Clinical Impression: Effusion, left knee Knee sprain Qualifiers: Encounter type: initial encounter Involved ligament of knee: unspecified ligament Laterality: left Qualified Code(s): S83.92XA - Sprain of unspecified site of left knee, initial encounter Condition: Good Instructions: ED Effusion Knee, ED Sprain Knee Follow-Up: [facility] [Provider Group] - Within 1 week Prescriptions: HYDROcod/ACETAM 5/325 [[place] 5/325] 1 - 2 ea PO Q6H PRN #14 tablet PRN Reason: Pain Comments: You appear to have a sprain of your left knee, you will need to be reevaluated on the effusion and swelling has gone down. Use the brace at home. You may bear weight as tolerated. Follow-up with orthopedics for further evaluation. Return if you worsen. Do not drink alcohol or drive while on narcotic pain medicine. Note that many narcotic pain relievers also contain tylenol/acetaminophen. Please ensure that your total dose of acetaminophen from all sources does not exceed 3 grams (3000mg) per day. You may constipated on this medication, take a stool softener such as "Colace" twice a day while you are on it. Also recommend a [id number] laxative such as senna or MiraLAX any day that you do not have a bowel movement. If you received narcotic pain medication in the emergency department, do not drive or operate machinery for the next 24 hours. Forms: Activity restrictions Discharge Date/Time: 02/26/21 21:21
[2021-02-26 21:20] VITALS: BP 127/70
== END 2021-02-26 21:21 | disposition home or self-care (01) ==
LOC: ED 18:56
DX: S83.92XA Sprain of unspecified site of left knee, initial encounter (principal); W18.30XA Fall on same level, unspecified, initial encounter; Y93.67 Activity, basketball
CPT/HCPCS: 73564; 96372; 99283; 99284; A9270

== ENCOUNTER 2021-03-27 12:50 | Outpatient (CLI) | payer OTHER, MEDICAID ==
--- NOTE | 2021-03-27 14:13 | MRI Report ---
PROCEDURE: Knee LT W/O INDICATIONS: LEFT KNEE INTERNAL DERANGEMENT TECHNIQUE: Noncontrast sagittal PD fast spin echo and T2 fast spin echo with fat saturation, sagittal 3-D gradie nt sequence with fat saturation; coronal T1 spin echo and PD fast spin echo with fat saturation, and axial PD fast spin echo with fat saturation through the knee. COMPARISON: Left knee radiograph dated 02/26/2021. FINDINGS: Image quality: Excellent. Menisci: The medial and lateral menisci demonstrate normal morphology and internal signal. The meni scal root ligaments appear intact. Cruciate ligaments: The anterior and posterior cruciate ligaments appear intact. Medial structures: The medial collateral ligament appears intact. The posterior oblique ligament, s emimembranosus tendon insertions, and oblique popliteal ligament, and meniscocapsular junction appear intact. Visualized portions of the pes anserinus tendons appear normal. No abnormal bursal fluid. Lateral structures: The lateral collateral ligament, long and short heads of the biceps femoris tend on appear intact. The popliteus tendon appears normal; the popliteofibular ligament appears intact. The posterosuperior and anteroinferior popliteomeniscal fascicles appear intact. The arcuate and fa bellofibular ligaments appear intact, around the lateral inferior geniculate artery. Iliotibial band appears normal. Anterior structures: The quadriceps and patellar tendons appear intact. Patellar alignment is jagdeep l. No femoral trochlear dysplasia or ventral trochlear prominence. No edema in the infrapatellar fa t pad. Bones and cartilage: No bone marrow contusions or fractures. The cartilage of the medial and latera l femorotibial compartments, as well as the patellofemoral compartment, appears normal in thickness. Joint space: There is small amount of joint fluid. No Baldwin?s cyst. Normal appearing synovial plic ae are incidentally noted. IMPRESSION: Unremarkable MRI examination of left knee. No evidence of internal derangement. Reviewed by: Oseas Allen MD on 03/27/2021 2:12 PM PDT Approved by: Oseas Allen MD on 03/27/2021 2:12 PM PDT Station ID: [id number]
== END 2021-03-27 12:51 | disposition home or self-care (01) ==
LOC: DI 12:50
PROVIDERS: ATTEND Physician Assistant
DX: M23.92 Unspecified internal derangement of left knee (principal)